=== PATIENT | female | born 1970 | race Two or more races ===

== ENCOUNTER 2021-03-29 14:47 | Inpatient (IN) | payer OTHER ==
[~2021-03-29] VITALS: Ht 170.2 cm; Wt 64.0 kg
[2021-03-29] MEDS ORDERED: ONDANSETRON HCL 4 MG/2 ML VIAL IV ONE (15:45)
[2021-03-29] MEDS ORDERED: SODIUM CHLORIDE 0.9% 500 ML IV ONE (15:45)
[2021-03-29] MEDS ORDERED: MORPHINE SULFATE 4 MG/ML SYR/VIAL IV ONE (15:45)
[2021-03-29] MEDS ORDERED: IOHEXOL 350 MG/ML 100ML IJ ONE (15:54)
[2021-03-29] MEDS: diphenhdrAMINE HCL 50 MG/1 ML VL IV ONE ×2 (16:00→17:37)
[2021-03-29 16:23] LABS: Basophils # (auto) 0 10 ^3/uL (0-0.2); Basophils % (auto) 0.3 % (0.0-2.0); Eosinophils # (auto) 0.1 10 ^3/uL (0-0.8); Eosinophils % (auto) 0.4 % (0.0-7.0); Hematocrit 31.5 % (36.0-46.0); Hemoglobin 10.9 g/dL (12.2-16.2); Lymphocytes # (auto) 0.7 10 ^3/uL (0.4-5.4); Lymphocytes % (auto) 5.7 % (10.0-50.0); Mean Corpuscular Hemoglobin 31.9 pg (28.0-32.0); Mean Corpuscular Hgb Conc. 34.7 g/dL (32.0-36.0); Mean Corpuscular Volume 91.8 fL (80.0-100.0); Monocytes # (auto) 0.8 10 ^3/uL (0-1.3); Monocytes % (auto) 6.8 % (0.0-12.0); Neutrophils # (auto) 10.6 10 ^3/uL (1.6-8.6); Neutrophils % (auto) 86.8 % (37.0-80.0); Platelet Count (auto) 280 10^3/uL (140-450); Red Blood Cells 3.43 10^6/uL (4.0-5.20); Red Cell Distribution Width 12.9 % (11.8-14.3); White Blood Cell 12.3 10^3/uL (4.4-10.8)
[2021-03-29 16:39] LABS: Albumin 3.2 g/dL (3.4-5.0); Calcium 8.7 mg/dL (8.5-10.1); Potassium 4.3 mmol/L (3.5-5.1)
[2021-03-29 16:45] LABS: BUN/Creatinine Ratio 16.4; Bilirubin, Total 1.3 mg/dL (0.2-1.0); Total Protein 7.5 g/dL (6.4-8.2)
[2021-03-29 16:55] LABS: INR 1.03 (0.9-1.15); Partial Thromboplastin Time 32.1 sec (23.0-31.2)
[2021-03-29 18:18] LABS: Urine Bacteria FEW /hpf (None Seen); Urine Blood Negative /uL (Negative); Urine Specific Gravity > 1.050 (1.001-1.035); Urine WBC 4 /hpf (0 - 5)
[2021-03-29] MEDS ORDERED: MORPHINE SULF INJ 2 MG/ML SYRINGE 1ML IV PRN (18:30)
[2021-03-29] MEDS ORDERED: NITROGLYCERIN 0.4 MG SL TAB SL PRN (18:30)
[2021-03-29] MEDS ORDERED: ONDANSETRON HCL 4 MG/2 ML VIAL IV PRN (18:30)
[2021-03-29] MEDS: cefTRIAXone 1GM/50ML D5W 50 ML IV SCH (19:30)
[2021-03-29] MEDS ORDERED: metroNIDAZOLE 500MG/100ML 100 ML IV ONE (20:00)
[2021-03-29] MEDS: MORPHINE SULF INJ 2 MG/ML SYRINGE 1ML IV PRN (20:28)
[2021-03-29] MEDS: D5W/LACTATED RINGERS 1,000 ML IV SCH (20:30)
[2021-03-29] MEDS ORDERED: KETOROLAC TROMETH 30 MG/ML 1ML VIAL IV ONE (21:15)
[2021-03-29 22:00] VITALS: BP 145/72
[2021-03-30] MEDS ORDERED: LISI20TA28 PO (02:29)
[2021-03-30] MEDS: MORPHINE SULF INJ 2 MG/ML SYRINGE 1ML IV PRN ×4 (04:40→23:17)
[2021-03-30 05:00] VITALS: BP 134/79
[2021-03-30] MEDS: D5W/LACTATED RINGERS 1,000 ML IV SCH ×2 (05:30→15:30)
[2021-03-30 07:24] LABS: Basophils # (auto) 0 10 ^3/uL (0-0.2); Basophils % (auto) 0.2 % (0.0-2.0); Eosinophils # (auto) 0 10 ^3/uL (0-0.8); Eosinophils % (auto) 0.6 % (0.0-7.0); Hematocrit 26.7 % (36.0-46.0); Hemoglobin 9.4 g/dL (12.2-16.2); Lymphocytes # (auto) 0.6 10 ^3/uL (0.4-5.4); Lymphocytes % (auto) 7.6 % (10.0-50.0); Mean Corpuscular Hemoglobin 32.1 pg (28.0-32.0); Mean Corpuscular Hgb Conc. 35.1 g/dL (32.0-36.0); Mean Corpuscular Volume 91.5 fL (80.0-100.0); Monocytes # (auto) 0.7 10 ^3/uL (0-1.3); Monocytes % (auto) 8.6 % (0.0-12.0); Neutrophils # (auto) 6.6 10 ^3/uL (1.6-8.6); Platelet Count (auto) 234 10^3/uL (140-450); Red Blood Cells 2.91 10^6/uL (4.0-5.20); Red Cell Distribution Width 12.9 % (11.8-14.3); White Blood Cell 7.9 10^3/uL (4.4-10.8)
[2021-03-30 07:33] LABS: Albumin 2.5 g/dL (3.4-5.0); Calcium 7.9 mg/dL (8.5-10.1); Potassium 3.7 mmol/L (3.5-5.1)
[2021-03-30 07:36] LABS: BUN/Creatinine Ratio 17.5; Bilirubin, Total 0.8 mg/dL (0.2-1.0)
[2021-03-30 08:50] VITALS: BP 143/73
[2021-03-30] MEDS ORDERED: ceFAZolin 1GM/50ML 100 ML IV ONE (11:03)
[2021-03-30] MEDS ORDERED: PHENYLEPHRINE HCL 10 MG/ML VL IV ONE (12:25)
[2021-03-30] MEDS ORDERED: MEPERIDINE HCL (50 MG/ML) 1 ML VIAL ONE (12:25)
[2021-03-30] MEDS ORDERED: GLYCOPYRROLATE 0.2 MG/ML 1ML VIAL IV ONE (12:25)
[2021-03-30] MEDS ORDERED: fentaNYL CITRATE 100 MCG/2 ML VL ONE ×2 (12:25→12:51)
[2021-03-30] MEDS ORDERED: MIDAZOLAM HCL 1MG/1ML-2 ML VIAL ONE (12:25)
[2021-03-30] MEDS ORDERED: NEOSTIGMINE 1 MG/ML INJ (10mg/10ML VIAL) IV ONE (12:25)
[2021-03-30] MEDS ORDERED: PROPOFOL 10 MG/ML 20 ML IV ONE (12:50)
[2021-03-30] MEDS ORDERED: DexAMETHasone SOD PHOS 10MG/1ML VIAL INJ ONE (12:50)
[2021-03-30] MEDS ORDERED: ONDANSETRON HCL 4 MG/2 ML VIAL IV PRN (13:15)
[2021-03-30] MEDS ORDERED: ePHEDrine SULFATE 50 MG/ML AMP IV PRN (13:15)
[2021-03-30] MEDS ORDERED: MORPHINE SULF INJ 2 MG/ML SYRINGE 1ML IV PRN (13:15)
[2021-03-30] MEDS ORDERED: LABETALOL HCL 5 MG/ML 4ML SYRINGE IV PRN (13:15)
[2021-03-30] MEDS ORDERED: MIDAZOLAM HCL 1MG/1ML-2 ML VIAL IV PRN (13:15)
[2021-03-30] MEDS ORDERED: METOCLOPRAMIDE HCL 5MG/ml INJ 2ml VIAL IV PRN (13:15)
[2021-03-30] MEDS: HYDROmorphone HCL 2 MG/ML VL IV PRN ×2 (13:45→13:58)
[2021-03-30] MEDS: metroNIDAZOLE 500MG/100ML 100 ML IV SCH ×2 (15:24→21:37)
[2021-03-30 17:00] VITALS: BP 122/79
[2021-03-30] MEDS: cefTRIAXone 1GM/50ML D5W 50 ML IV SCH (21:00)
[2021-03-30 22:00] VITALS: BP 139/78
[2021-03-31] MEDS: D5W/LACTATED RINGERS 1,000 ML IV SCH ×3 (01:30→21:15)
[2021-03-31] MEDS: MORPHINE SULF INJ 2 MG/ML SYRINGE 1ML IV PRN ×4 (03:26→20:38)
[2021-03-31 05:00] VITALS: BP 144/80
[2021-03-31] MEDS: metroNIDAZOLE 500MG/100ML 100 ML IV SCH ×4 (05:31→22:14)
[2021-03-31 06:02] LABS: Basophils # (auto) 0.1 10 ^3/uL (0-0.2); Basophils % (auto) 0.7 % (0.0-2.0); Eosinophils # (auto) 0 10 ^3/uL (0-0.8); Eosinophils % (auto) 0.1 % (0.0-7.0); Hematocrit 28.4 % (36.0-46.0); Hemoglobin 10.3 g/dL (12.2-16.2); Lymphocytes # (auto) 0.4 10 ^3/uL (0.4-5.4); Mean Corpuscular Hgb Conc. 36.3 g/dL (32.0-36.0); Monocytes # (auto) 0.7 10 ^3/uL (0-1.3); Monocytes % (auto) 7.3 % (0.0-12.0); Neutrophils # (auto) 8.1 10 ^3/uL (1.6-8.6); Neutrophils % (auto) 87.9 % (37.0-80.0); Nucleated Red Blood Cells % 0.1 %; Platelet Count (auto) 280 10^3/uL (140-450); Red Blood Cells 3.12 10^6/uL (4.0-5.20); White Blood Cell 9.3 10^3/uL (4.4-10.8)
[2021-03-31 09:00] VITALS: BP 157/92
[2021-03-31] MEDS ORDERED: HYDROcodone-ACET 5/325MG TAB PO PRN (12:00)
[2021-03-31 13:00] VITALS: BP 157/86
[2021-03-31] MEDS: HYDROcodone-ACET 5/325MG TAB PO PRN ×2 (13:23→21:26)
[2021-03-31 17:00] VITALS: BP 152/83
[2021-03-31] MEDS: cefTRIAXone 1GM/50ML D5W 50 ML IV SCH (21:04)
[2021-03-31 22:00] VITALS: BP 135/84
[2021-03-31] MEDS: LISINOPRIL 20 MG TAB PO SCH (22:18)
[2021-04-01] MEDS: MORPHINE SULF INJ 2 MG/ML SYRINGE 1ML IV PRN ×3 (04:26→20:53)
[2021-04-01 05:00] VITALS: BP 148/81
[2021-04-01] MEDS: metroNIDAZOLE 500MG/100ML 100 ML IV SCH ×3 (05:34→23:16)
[2021-04-01] MEDS: HYDROcodone-ACET 5/325MG TAB PO PRN ×4 (05:34→23:16)
[2021-04-01 06:19] LABS: Basophils # (auto) 0 10 ^3/uL (0-0.2); Basophils % (auto) 0.7 % (0.0-2.0); Eosinophils # (auto) 0.1 10 ^3/uL (0-0.8); Eosinophils % (auto) 1.7 % (0.0-7.0); Hematocrit 24.7 % (36.0-46.0); Hemoglobin 8.8 g/dL (12.2-16.2); Lymphocytes # (auto) 1.3 10 ^3/uL (0.4-5.4); Mean Corpuscular Hemoglobin 32.6 pg (28.0-32.0); Mean Corpuscular Hgb Conc. 35.6 g/dL (32.0-36.0); Mean Corpuscular Volume 91.7 fL (80.0-100.0); Monocytes # (auto) 0.7 10 ^3/uL (0-1.3); Monocytes % (auto) 10.6 % (0.0-12.0); Neutrophils # (auto) 4.2 10 ^3/uL (1.6-8.6); Nucleated Red Blood Cells % 0.2 %; Platelet Count (auto) 205 10^3/uL (140-450); Red Blood Cells 2.69 10^6/uL (4.0-5.20); Red Cell Distribution Width 13.3 % (11.8-14.3); White Blood Cell 6.3 10^3/uL (4.4-10.8)
[2021-04-01 09:00] VITALS: BP 137/71
[2021-04-01] MEDS: D5W/LACTATED RINGERS 1,000 ML IV SCH ×2 (09:22→17:30)
[2021-04-01] MEDS: LISINOPRIL 20 MG TAB PO SCH ×2 (10:00→23:17)
[2021-04-01] MEDS ORDERED: DOCUSATE SOD 100 MG CAP PO ONE (11:30)
[2021-04-01 12:46] VITALS: BP 114/75
[2021-04-01] MEDS ORDERED: FLEET MINERAL OIL ENEMA 133 ML PR ONE (15:00)
[2021-04-01 16:41] VITALS: BP 137/76
[2021-04-01] MEDS: cefTRIAXone 1GM/50ML D5W 50 ML IV SCH (21:02)
[2021-04-01 22:00] VITALS: BP 158/85
[2021-04-02] MEDS: diphenhdrAMINE HCL 25 MG CAP PO PRN (00:51)
[2021-04-02] MEDS: D5W/LACTATED RINGERS 1,000 ML IV SCH ×3 (03:39→23:30)
[2021-04-02 05:00] VITALS: BP 156/87
[2021-04-02] MEDS: MORPHINE SULF INJ 2 MG/ML SYRINGE 1ML IV PRN ×3 (05:04→14:19)
[2021-04-02] MEDS: metroNIDAZOLE 500MG/100ML 100 ML IV SCH ×3 (05:55→22:26)
[2021-04-02] MEDS ORDERED: IOHEXOL 300 MG/ML 100ML BOTTLE IJ ONE (07:39)
[2021-04-02 07:57] LABS: Basophils # (auto) 0 10 ^3/uL (0-0.2); Basophils % (auto) 0.5 % (0.0-2.0); Eosinophils # (auto) 0.2 10 ^3/uL (0-0.8); Eosinophils % (auto) 2.8 % (0.0-7.0); Hematocrit 27.2 % (36.0-46.0); Hemoglobin 9.6 g/dL (12.2-16.2); Lymphocytes # (auto) 1.6 10 ^3/uL (0.4-5.4); Lymphocytes % (auto) 21.1 % (10.0-50.0); Mean Corpuscular Hemoglobin 32.1 pg (28.0-32.0); Mean Corpuscular Hgb Conc. 35.1 g/dL (32.0-36.0); Mean Corpuscular Volume 91.5 fL (80.0-100.0); Monocytes # (auto) 0.8 10 ^3/uL (0-1.3); Monocytes % (auto) 10.4 % (0.0-12.0); Neutrophils # (auto) 4.9 10 ^3/uL (1.6-8.6); Neutrophils % (auto) 65.2 % (37.0-80.0); Nucleated Red Blood Cells % 0.1 %; Platelet Count (auto) 325 10^3/uL (140-450); Red Blood Cells 2.98 10^6/uL (4.0-5.20); Red Cell Distribution Width 13.5 % (11.8-14.3); White Blood Cell 7.4 10^3/uL (4.4-10.8)
[2021-04-02] MEDS: HYDROcodone-ACET 5/325MG TAB PO PRN (08:04)
[2021-04-02 09:00] VITALS: BP 155/101
[2021-04-02] MEDS: LISINOPRIL 20 MG TAB PO SCH ×2 (09:49→22:34)
[2021-04-02] MEDS: MILK OF MAGNESIA 30ML SUSP PO SCH (09:49)
[2021-04-02] MEDS ORDERED: LORazepam 2MG/ML-1ML VIAL IV PRN (10:30)
[2021-04-02 11:18] LABS: BUN/Creatinine Ratio 9.3; Calcium 8.1 mg/dL (8.5-10.1); Potassium 3.5 mmol/L (3.5-5.1)
[2021-04-02 12:31] VITALS: BP 152/89
[2021-04-02] MEDS: METOPROLOL TARTRATE 1MG/1ML-5ML VIAL IV PRN ×2 (12:43→21:11)
[2021-04-02] MEDS ORDERED: GASTROGRAFIN 120 ML SOL ONE (14:41)
[2021-04-02 16:49] VITALS: BP 145/87
[2021-04-02] MEDS: LORazepam 2MG/ML-1ML VIAL IV PRN (19:03)
[2021-04-02] MEDS: cefTRIAXone 1GM/50ML D5W 50 ML IV SCH (21:11)
[2021-04-02 22:00] VITALS: BP 132/99
[2021-04-03] MEDS: MORPHINE SULF INJ 2 MG/ML SYRINGE 1ML IV PRN ×4 (04:30→18:43)
[2021-04-03 05:00] VITALS: BP 142/91
[2021-04-03] MEDS: metroNIDAZOLE 500MG/100ML 100 ML IV SCH ×3 (06:15→14:32)
[2021-04-03 06:51] LABS: Basophils # (auto) 0.1 10 ^3/uL (0-0.2); Basophils % (auto) 1.2 % (0.0-2.0); Eosinophils # (auto) 0.2 10 ^3/uL (0-0.8); Eosinophils % (auto) 2.5 % (0.0-7.0); Hematocrit 30.1 % (36.0-46.0); Hemoglobin 10.8 g/dL (12.2-16.2); Lymphocytes # (auto) 1.3 10 ^3/uL (0.4-5.4); Lymphocytes % (auto) 19.8 % (10.0-50.0); Mean Corpuscular Hemoglobin 32.4 pg (28.0-32.0); Mean Corpuscular Hgb Conc. 35.8 g/dL (32.0-36.0); Mean Corpuscular Volume 90.3 fL (80.0-100.0); Monocytes # (auto) 0.5 10 ^3/uL (0-1.3); Monocytes % (auto) 7.7 % (0.0-12.0); Neutrophils # (auto) 4.4 10 ^3/uL (1.6-8.6); Neutrophils % (auto) 68.8 % (37.0-80.0); Nucleated Red Blood Cells % 0.1 %; Platelet Count (auto) 360 10^3/uL (140-450); Red Blood Cells 3.33 10^6/uL (4.0-5.20); Red Cell Distribution Width 13.2 % (11.8-14.3); White Blood Cell 6.5 10^3/uL (4.4-10.8)
[2021-04-03 09:00] VITALS: BP 160/91
[2021-04-03] MEDS: LISINOPRIL 20 MG TAB PO SCH ×2 (10:00→22:00)
[2021-04-03] MEDS: MILK OF MAGNESIA 30ML SUSP PO SCH (10:00)
[2021-04-03] MEDS: D5W/LACTATED RINGERS 1,000 ML IV SCH ×3 (11:41→14:00)
[2021-04-03] MEDS: LORazepam 2MG/ML-1ML VIAL IV PRN (11:43)
[2021-04-03] MEDS: METOPROLOL TARTRATE 1MG/1ML-5ML VIAL IV PRN (12:10)
[2021-04-03 13:00] VITALS: BP 160/89
[2021-04-03 16:37] VITALS: BP 144/83
[2021-04-03] MEDS: diphenhdrAMINE HCL 25 MG CAP PO PRN (19:50)
[2021-04-03] MEDS: cefTRIAXone 1GM/50ML D5W 50 ML IV SCH (21:00)
[2021-04-03 22:00] VITALS: BP 140/81
[2021-04-04] MEDS: MORPHINE SULF INJ 2 MG/ML SYRINGE 1ML IV PRN ×2 (01:05→19:59)
[2021-04-04 05:00] VITALS: BP 130/58
[2021-04-04] MEDS: metroNIDAZOLE 500MG/100ML 100 ML IV SCH ×3 (06:30→22:02)
[2021-04-04 09:00] VITALS: BP 128/81
[2021-04-04] MEDS: MILK OF MAGNESIA 30ML SUSP PO SCH (10:18)
[2021-04-04] MEDS: LISINOPRIL 20 MG TAB PO SCH ×2 (10:19→22:02)
[2021-04-04] MEDS: HYDROcodone-ACET 5/325MG TAB PO PRN ×2 (10:20→22:11)
[2021-04-04] MEDS ORDERED: LACTULOSE 20Gm/30ML SOLN PO ONE (12:30)
[2021-04-04 13:00] VITALS: BP 121/76
[2021-04-04] MEDS: D5W/LACTATED RINGERS 1,000 ML IV SCH (15:30)
[2021-04-04 17:00] VITALS: BP 148/83
[2021-04-04] MEDS: cefTRIAXone 1GM/50ML D5W 50 ML IV SCH (21:05)
[2021-04-05] MEDS: D5W/LACTATED RINGERS 1,000 ML IV SCH ×2 (01:30→11:30)
[2021-04-05 05:12] VITALS: BP 122/66
[2021-04-05] MEDS: metroNIDAZOLE 500MG/100ML 100 ML IV SCH ×2 (06:07→14:00)
[2021-04-05] MEDS: MILK OF MAGNESIA 30ML SUSP PO SCH (10:21)
[2021-04-05] MEDS: LISINOPRIL 20 MG TAB PO SCH (10:22)
[2021-04-05] MEDS: HYDROcodone-ACET 5/325MG TAB PO PRN (10:23)
[2021-04-05 13:28] VITALS: BP 151/77
[2021-04-05 13:49] VITALS: BP 129/70
== END 2021-04-05 14:40 | disposition home or self-care (01) | DRG 710 ==
LOC: ER 14:47 → TELE 18:28 → TELE-WESTW 22:00
PROVIDERS: ADMIT Nurse Practitioner Acute Care; ATTEND Family Medicine
PROC: 0WCG0ZZ Extirpation of Matter from Peritoneal Cavity, Open Approach (ICD-10-PCS; principal; 2021-03-30 12:30)
PROC: 05HB33Z Insertion of Infusion Device into Right Basilic Vein, Percutaneous Approach (ICD-10-PCS; 2021-03-31)
PROC: B54MZZA Ultrasonography of Right Upper Extremity Veins, Guidance (ICD-10-PCS; 2021-03-31)
PROC: 0D9670Z Drainage of Stomach with Drainage Device, Via Natural or Artificial Opening (ICD-10-PCS; 2021-04-02)
DX: A41.9 Sepsis, unspecified organism (principal); K66.1 Hemoperitoneum; D62 Acute posthemorrhagic anemia; E44.1 Mild protein-calorie malnutrition; I10 Essential (primary) hypertension; Z90.711 Acquired absence of uterus with remaining cervical stump; Z20.822 Contact with and (suspected) exposure to COVID-19; Z82.49 Family history of ischemic heart disease and other diseases of the circulatory system; Z88.1 Allergy status to other antibiotic agents; Z90.49 Acquired absence of other specified parts of digestive tract; F17.200 Nicotine dependence, unspecified, uncomplicated; F15.10 Other stimulant abuse, uncomplicated; F10.10 Alcohol abuse, uncomplicated; Z82.3 Family history of stroke
CPT/HCPCS: 36415; 71045; 74018; 74176; 74177; 74250; 80048; 80053; 81001; 82150; 83690; 85025; 85049; 85610; 85730; 86850; 86900; 86901; 87081; 87426; 93005; 96365; 96375; G0378; J0690; J0696; J1100; J1885; J2250; J2405; J2704; J3490

== ENCOUNTER 2022-01-18 10:56 | Emergency (ER) | payer OTHER ==
[~2022-01-18] VITALS: Ht 170.2 cm; Wt 74.8 kg
[~2022-01-18 10:56] MED LIST: LISI20TA28 PO
[2022-01-18 12:13] VITALS: BP 150/80
[2022-01-18] MEDS ORDERED: KETOROLAC TROMETH 60MG/2ML VIAL IM ONE (12:15)
== END 2022-01-18 14:55 | disposition left against medical advice (07) ==
LOC: ER 10:56
DX: R07.81 Pleurodynia (principal); Z53.21 Procedure and treatment not carried out due to patient leaving prior to being seen by health care provider

== ENCOUNTER 2025-06-01 15:16 | Emergency (ER) | payer BC, MEDICAID ==
[~2025-06-01] VITALS: Ht 170.2 cm; Wt 86.4 kg
[~2025-06-01 15:16] MED LIST changes: -LISI20TA28 PO; +LISI20TA56 PO
--- NOTE | 2025-06-01 15:29 | ED.PDOC ---
HPI Comments This is a 54 year old female HOSSEIN presenting to the ED with chief complaint of SVT. Patient reports that she started to experience palpitations with associated SOB, epigastric pain, and diaphoresis about an hour ago. Patient relays that she tried to do a vagal maneuver for SVT, however, it made her symptoms worse. EMS states that the patient had a heart rate at 155 in SVT, so patient was given 6mg of Adenosine, successfully converting to NSR. Patient notes she had an episode of SVT 8 years ago. Patient denies any chest pain, SOB, dizziness, N/V/D, or syncope. Time Seen by MD: 15:27 Primary Care Provider: none Reviewed Notes: Nurses Notes, Broomcorn Scraper Notes, Medications, Allergies Allergies: Coded Allergies: Levofloxacin (Verified Allergy, Unknown, 03/29/21) Home Meds Reported Medications Lisinopril (Lisinopril) 20 Mg Tab, 20 MG PO DAILY for BP Control for 30 Days, MG 03/30/21 Information Source: Patient, Emergency Med Personnel Mode of Arrival: EMS Severity: Moderate Timing: Hours Duration: Minutes Prehospital treatment: Other (6mg Adenosine) Quality: Pressure Onset: At Rest Cardiac Risk Factors: HTN PE Risk Factors: None History of: Similar pain in past Associated Signs and Symptoms: SOB, Palpitations, Diaphoresis, Abdominal Pain Past Medical History PAST MEDICAL HISTORY: HTN Past Medical History (Other): SVT 8 years ago Surgical History: Appendectomy, Hysterectomy, Tubal Ligation 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 History Family History Family History: Family hx of HTN Social History Smoker: Other (Vapes) Alcohol: Occasionally Drugs: Denies Drug Use Lives In: Home Constitutional: reports: diaphoresis; denies: chills, fatigue, fever, malaise, sweats, weakness, others EENTM: denies: blurred vision, double vision, ear bleeding, ear discharge, ear drainage, ear pain, ear ringing, eye pain, eye redness, hearing loss, mouth pain, mouth swelling, nasal discharge, nose bleeding, nose congestion, nose pain, photophobia, tearing, throat pain, throat swelling, voice changes, others Respiratory: reports: shortness of breath; denies: cough, hemoptysis, orthopnea, SOB at rest, SOB with excertion, stridor, wheezing, others Cardiovascular: reports: palpitations; denies: chest pain, dizzy spells, diaphoresis, Dyspnea on exertion, edema, irregular heart beat, left arm pain, lightheadedness, PND, syncope, others Gastrointestinal: reports: abdominal pain; denies: abdomen distended, blood streaked bowels, constipated, diarrhea, dysphagia, difficulty swallowing, h ematemesis, melena, nausea, poor appetite, poor fluid intake, rectal bleeding, rectal pain, vomiting, others Genitourinary: denies: abnormal vagina bleeding, burning, dyspareunia, dysuria, flank pain, frequency, hematuria, incontinence, pain, , vagina discharge, urgency, others Neurological: denies: dizziness, fainting, headache, left sided numbness, left sided weakness, numbness, paresthesia, pre-existing deficit, right sided numbness, right sided weakness, seizure, speech problems, tingling, tremors, weakness, others Musculoskeletal: denies: back pain, gout, joint pain, joint swelling, muscle pain, muscle stiffness, neck pain, others Integumetry: denies: bruises, change in color, change in hair/nails, dryness, laceration, lesions, lumps, rash, wounds, others Allergic/Immunocompromised: denies: Difficulty Healing, Frequent Infections, Hives, Itching, others Hematologic/Lymphatic: denies: anemia, blood clots, easy bleeding, easy bruising, swollen glands, others Endocrine: denies: excessive hunger, excessive sweating, excessive thirst, excessive urination, flushing, intolerance to cold, intolerance to heat, unexplained weight gain, unexplained weight loss, others Psychiatric: denies: anxiety, bipolar disorder, depression, hopeless, panic disorder, schizophrenia, sleepless, suicidal, others All Other Systems: Reviewed and Negative Physical Exam General Appearance: Moderate Distress, Normal HEENT: Normal ENT Inspection, Pharynx Normal, TMs Normal Neck: Full Range of Motion, Non-Tender, Normal, Normal Inspection Respiratory: Chest Non-Tender, Lungs Clear, No Accessory Muscle Use, No Respiratory Distress, Normal Breath Sounds Cardiovascular: No Edema, No JVD, No Murmur, No Gallop, Normal Peripheral Pulses, Regular Rate/Rhythm Breast Exam: Deferred Gastrointestinal: No Organomegaly, Non Tender, No Pulsatile Mass, Normal Bowel Sounds, Soft Genitalia: Deferred Pelvic: Deferred Rectal: Deferred Extremities: No calf tenderness, Normal capillary refill, Normal inspection, Normal range of motion, Non-tender, No pedal edema Musculoskeletal : Apperance: Normal Neurologic: Alert, cotton feeder II-XII nml as Tested, No Motor Deficits, Normal Affect, Normal Mood, No Sensory Deficits Cerebellar Function: NOT DONE Reflexes: NOT DONE Skin: Dry, Normal Color, Warm Peripheral Pulses: 3+ Radial (R), 3+ Radial (L) Lymphatic: No Adenopathy Was a procedure done? Was a procedure done?: No CP Differential Dx Differential Diagnosis: Angina, Anxiety / Panic Attack, Atrial Dysrhythmia, Electrolyte Disorder X-Ray, Labs, Meds, VS Vital Signs Date Time Temp Pulse Resp B/P (MAP) Pulse Ox O2 Delivery O2 Flow Rate FiO2 06/01/25 15:52 98.5 93 18 161/94 98 98.5 Lab Test 06/01/25 15:48 Range/Units White Blood Count Pending Red Blood Count Pending Hemoglobin Pending Hematocrit Pending Mean Corpuscular Volume Pending Mean Corpuscular Hemoglobin Pending Mean Corpuscular Hemoglobin Concent Pending Red Cell Distribution Width Pending Platelet Count Pending Mean Platelet Volume Pending Neutrophils (%) (Auto) Pending Lymphocytes (%) (Auto) Pending Monocytes (%) (Auto) Pending Basophils (%) (Auto) Pending Neutrophils # (Auto) Pending Lymphocytes # (Auto) Pending Monocytes # (Auto) Pending Sodium Level Pending Potassium Level Pending Chloride Level Pending Carbon Dioxide Level Pending Anion Gap Pending Blood Urea Nitrogen Pending Creatinine Pending Glomerular Filtration Rate Calc Pending BUN/Creatinine Ratio Pending Serum Glucose Pending Calcium Level Pending Troponin I High Sensitivity Pending Patient alert. Was in SVT prior to coming to the ER. Was given adenosine with success. Vitals stable. Has a history of SVT. Last one many years ago. She does vape. She does not take any medication for her supraventricular tachycardia. She does take medicine for hypertension. Explained to the patient. Continue monitoring. Time of 1ST Reevaluation: 16:26 Reevaluation 1ST: Unchanged Patient Education/Counseling: Diagnosis, Treatment Family Education/Counseling: No Family Present SEPSIS Sepsis Screen Physician Orders Troponin-I Hs (06/01/25 15:18) Complete Blood Count (06/01/25 15:18) Chest Portable (06/01/25 15:18) Urinalysis (06/01/25 15:18) Basic Metabolic Panel (06/01/25 15:18) Sodium Chloride 0.9% (06/01/25 15:30) Troponin-I Hs (06/01/25 16:18) Troponin-I Hs (06/01/25 18:18) Vital Signs Date Time Temp Pulse Resp B/P (MAP) Pulse Ox O2 Delivery O2 Flow Rate FiO2 06/01/25 15:52 98.5 93 18 161/94 98 98.5 Laboratory Tests Test 06/01/25 15:48 White Blood Count Pending Departure 1 Departure Time of Disposition: 16:01 Impression: Primary Impression: Supraventricular tachycardia Disposition: ADMITTED INPATIENT Admit to: Med Surg Condition: Guarded Critical Care Note Critical Care Time?: Yes (90 min-critical care time only) Critical care comment: Continue to monitor to make sure she does not go back into SVT Stability Stability form required: No Heart Score Heart Score: Heart Score Response (Comments) Value History Slightly Suspicious 0 EKG Normal 0 Age 45-64 1 Risk Factors 1 or 2 risk factors 1 Troponin Normal limit 0 Total 2 I personally scribed for ANA QUIÑONES MD ([email or web address]) on 06/01/25 at 15:29. Electronically submitted by Lucio Wray ([email or web address]). ANA QUIÑONES MD Jun 01, 2025 15:29
[2025-06-01] MEDS ORDERED: SODIUM CHLORIDE 0.9% 1,000 ML IV ONE (15:30)
[2025-06-01 15:52] VITALS: BP 161/94; PULSE 93; RESP 18; TEMP 98.5; O2SAT 98
[2025-06-01 16:11] LABS: Hematocrit 45.5 % (36.0-46.0); Hemoglobin 15.8 g/dL (12.2-16.2); Mean Corpuscular Hemoglobin 30.9 pg (28.0-32.0); Mean Corpuscular Volume 88.9 fL (80.0-100.0); Nucleated Red Blood Cells % 0.1 %
[2025-06-01 16:14] LABS: Potassium 3.6 mmol/L (3.5-5.1); Sodium 143 mmol/L (136-145)
[2025-06-01 16:15] LABS: Anion Gap 7 (5-15); Calcium 9.7 mg/dL (8.7-10.4); Carbon Dioxide 26 mmol/L (20-31); Chloride 110 mmol/L (98-107)
[2025-06-01] MEDS ORDERED: METOPROLOL TARTRATE 25 MG TAB PO ONE (16:15)
[2025-06-01 16:20] LABS: BUN/Creatinine Ratio 14.8 (10.0-20.0); Blood Urea Nitrogen 12 mg/dL (9-23)
[2025-06-01 16:21] LABS: Glucose 136 mg/dL (74-106)
--- NOTE | 2025-06-01 16:43 | DVH ---
EXAM: XY CHEST PORTABLE HISTORY: sob TECHNIQUE: 1 view of the chest COMPARISON: CHEST PORTABLE on DOS: 04/02/21 FINDINGS/IMPRESSION: LUNGS: No pleural effusion, consolidation, or pneumothorax. Bibasilar hazy alveolar and interstitial opacities which may be exaggerated secondary to Low lung volumes, which cause crowding of the broncho vascular markings. volumes however correlate with clinical exam to exclude underlying infiltrate MEDIASTINUM: Unremarkable BONES: No acute osseous abnormality OTHER: None
== END 2025-06-01 16:43 | disposition left against medical advice (07) ==
LOC: EDBD 15:16 → ER 15:16 → EDUNIT# 15:16 → ER 16:43
DX: I47.10 Supraventricular tachycardia, unspecified (principal); F17.290 Nicotine dependence, other tobacco product, uncomplicated; I10 Essential (primary) hypertension; F10.90 Alcohol use, unspecified, uncomplicated; Z90.710 Acquired absence of both cervix and uterus; Z90.49 Acquired absence of other specified parts of digestive tract; Z88.1 Allergy status to other antibiotic agents; Z82.49 Family history of ischemic heart disease and other diseases of the circulatory system; Z79.899 Other long term (current) drug therapy; Y90.9 Presence of alcohol in blood, level not specified
CPT/HCPCS: 36415; 71045; 80048; 84484; 85025